=== PATIENT | female | born 1945 | race Caucasian/White ===

== ENCOUNTER 2017-08-23 16:31 | Emergency (ER) | payer MEDICARE, MEDICAID ==
[2017-08-23 17:04] VITALS: BP 142/59
--- NOTE | 2017-08-23 17:31 | EDM.PDOC ---
ED HPI GENERAL MEDICAL PROBLEM - General Chief Complaint: Genitourinary Problem Stated Complaint: UTI Time Seen by Provider: 08/23/17 17:05 Source of Information: Reports: Patient History Limitations: Reports: No Limitations - History of Present Illness INITIAL COMMENTS - FREE TEXT/NARRATIVE: Patient is a 71-year-old female who presents to the emergency department this afternoon with a complaint of burning with urination. She was seen at [facility] 9 days ago and given Macrobid. Symptoms have persisted and now become worse. Patient states only has dysuria and denies any abdominal pain, nausea, vomiting, diarrhea, fever, or flank pain. Onset: Gradual Onset Date: 08/14/17 Duration: Getting Worse Quality: Reports: Burning (With urination) Severity: Mild Improves with: Reports: None Worsens with: Reports: None Associated Symptoms: Reports: No Other Symptoms. Denies: Fever/Chills Bladder Pain Score (Numeric/FACES): 5 - Related Data Allergies Allergy/AdvReac Type Severity Reaction Status Date / Time cefuroxime axetil Allergy Rash Verified 08/23/17 16:53 [From Ceftin] codeine Allergy Itching Verified 08/23/17 16:53 moxifloxacin HCl Allergy Jaundice Verified 08/23/17 16:53 [From Avelox] Penicillins Allergy Rash Verified 08/23/17 16:53 Sulfa (Sulfonamide Allergy Rash Verified 08/23/17 16:53 Antibiotics) Home Meds: Home Meds Amitriptyline [Elavil] 25 mg PO BEDTIME PRN 10/20/15 [History] Esomeprazole Magnesium [Nexium] 40 mg PO DAILY 10/20/15 [History] Gabapentin 400 mg PO DAILY 10/20/15 [History] Mometasone Furoate [Nasonex [place]] 1 spray INH DAILY PRN 10/20/15 [History] Rosuvastatin [Crestor] 40 mg PO DAILY 10/20/15 [History] Acetaminophen/oxyCODONE [Percocet 325-5 MG] 1 tab PO Q4H PRN #24 tablet [Rx] Albuterol Sulfate [Proair Respiclick] 2 puff INH Q4H PRN 08/23/17 [History] Albuterol/Ipratropium [DuoNeb 3.0-0.5 MG/3 ML] 1 ampule INH Q6H PRN 08/23/17 [ History] Aspirin 81 mg PO DAILY 08/23/17 [History] Cephalexin [Keflex] 500 mg PO TID #21 capsule 08/23/17 [Rx] Gabapentin [Neurontin] 100 mg PO QAM 08/23/17 [History] Gluc 2KCl/Chondr/Jesse Hy/Hy Ac [Glucosamine & Chondroitin Cap] 1 cap PO DAILY [History] [place]-3/DHA/Epa/Fish Oil [[place] 3 500 Softgel] 1 tab PO BID 08/23/17 [History] Phenazopyridine [Pyridium] 200 mg PO TID #6 tab 08/23/17 [Rx] metFORMIN [Glucophage XR] 500 mg PO DAILY 08/23/17 [History] Past Medical History HEENT History: Reports: None Cardiovascular History: Reports: High Cholesterol, Hypertension Respiratory History: Reports: COPD Gastrointestinal History: Reports: Cholelithiasis, Colon Polyp, GERD, Hiatal Hernia Genitourinary History: Reports: UTI, Recurrent [employer] History: Reports: Musculoskeletal History: Reports: Back Pain, Chronic, Fibromyalgia Neurological History: Reports: None Endocrine/Metabolic History: Reports: None Hematologic History: Reports: None Immunologic History: Reports: None - Past Surgical History Cardiovascular Surgical History: Reports: None Respiratory Surgical History: Reports: None GI Surgical History: Reports: Appendectomy, Cholecystectomy, Colonoscopy, EGD Female Surgical History: Reports: Breast Biopsy, Section, Hysterectomy Endocrine Surgical History: Reports: None Neurological Surgical History: Reports: Laminectomy Musculoskeletal Surgical History: Reports: Arthroscopic Knee, Arthroscopic Procedure, Carpal Tunnel, Shoulder Surgery Other Musculoskeletal Surgeries/Procedures:: hallie rotater cuff. right knee scope Oncologic Surgical History: Reports: Lumpectomy Social & Family History - Tobacco Use Smoking Status *Q: Current Every Day Smoker Years of Tobacco use: 45 Packs/Tins Daily: 1.5 - Caffeine Use Caffeine Use: Reports: Coffee - Recreational Drug Use Recreational Drug Use: No ED ROS GENERAL - Review of Systems Review Of Systems: ROS reveals no pertinent complaints other than HPI. Constitutional: Reports: No Symptoms HEENT: Reports: No Symptoms Respiratory: Reports: No Symptoms Cardiovascular: Reports: No Symptoms Endocrine: Reports: No Symptoms GI/Abdominal: Reports: No Symptoms : Reports: Dysuria, Frequency, Hematuria, Urgency. Denies: Discharge, Flank Pain Musculoskeletal: Reports: No Symptoms Skin: Reports: No Symptoms Neurological: Reports: No Symptoms Psychiatric: Reports: No Symptoms Hematologic/Lymphatic: Reports: No Symptoms Immunologic: Reports: No Symptoms ED EXAM, RENAL/ - Physical Exam Exam: See Below Exam Limited By: No Limitations General Appearance: Alert, WD/WN, No Apparent Distress Throat/Mouth: Normal Inspection, Normal Oropharynx, No Airway Compromise Respiratory/Chest: No Respiratory Distress, Lungs Clear, Normal Breath Sounds Cardiovascular: Regular Rate, Rhythm, No Murmur GI/Abdominal: Normal Bowel Sounds, Soft, Non-Tender Back Exam: Normal Inspection. No: CVA Tenderness (L), CVA Tenderness (R) Extremities: Normal Inspection, No Pedal Edema Neurological: Alert, Oriented, Normal Cognition Psychiatric: Normal Affect, Normal Mood Skin Exam: Warm, Dry, Intact, Normal Color, No Rash Lymphatic: No Adenopathy Course - Vital Signs Last Recorded V/S: Last Vital Signs Temp 98.1 F 08/23/17 17:01 Pulse 83 08/23/17 17:01 Resp 18 08/23/17 17:01 BP 142/59 H 08/23/17 17:01 Pulse Ox 95 08/23/17 17:01 - Orders/Labs/Meds Orders: Active Orders 24 hr Category Date Time Status CULTURE URINE [RM] Stat Lab 08/23/17 17:06 Ordered URINALYSIS W/MICROSCOPIC [UA W/MICROSCOPIC] [URIN] Stat Lab 08/23/17 16:45 Ordered cefTRIAXone [Rocephin] Med 08/23/17 17:26 Once 1 gm IM ONETIME ONE Labs: Laboratory Tests 08/23/17 Range/Units 16:45 Specimen Type Urincc Urine Color Light yellow (YELLOW) Urine Appearance Slightly cloudy H (CLEAR) Urine pH 7.0 (5.0-9.0) Ur Specific [place] <= 1.005 (1.005-1.030) Urine Protein Negative (NEGATIVE) mg/dL Urine Glucose (UA) Negative (NEGATIVE) mg/dL Urine Ketones Negative (NEGATIVE) mg/dL Urine Occult Blood Large H (NEGATIVE) Urine Nitrite Negative (NEGATIVE) Urine Bilirubin Negative (NEGATIVE) Urine Urobilinogen 0.2 (0.2-1.0) E.U./dL Ur Leukocyte Esterase Large H (NEGATIVE) Urine RBC 0-5 /HPF Urine WBC 30-40 H /HPF Ur Epithelial Cells Few /LPF Urine Bacteria Few (NONE TO FEW) /HPF - Re-Assessments/Exams Free Text/Narrative Re-Assessment/Exam: 08/23/17 17:39 Patient afebrile, nontoxic appearing, vital signs stable. Patient given Rocephin 1 g IM, and 200 mg Pyridium. Patient will follow-up with PCP in 3 days for recheck. Departure - Departure Time of Disposition: 18:15 Disposition: Home, Self-Care 01 Condition: Good Clinical Impression: UTI, Urinary tract infectious disease - Discharge Information Instructions: Urinary Tract Infection, Adult, [id number] Referrals: Catina Carrasco PA-C [Primary Care Provider] - Additional Instructions: Follow-up at [facility] in 3 days for recheck. Return to emergency department sooner if symptoms continue or worsen. - My Orders Last 24 Hours: My Active Orders 08/23/17 16:45 URINALYSIS W/MICROSCOPIC [UA W/MICROSCOPIC] [URIN] Stat 08/23/17 17:06 CULTURE URINE [RM] Stat 08/23/17 17:26 cefTRIAXone [Rocephin] 1 gm IM ONETIME ONE - Assessment/Plan Last 24 Hours: My Active Orders 08/23/17 16:45 URINALYSIS W/MICROSCOPIC [UA W/MICROSCOPIC] [URIN] Stat 08/23/17 17:06 CULTURE URINE [RM] Stat 08/23/17 17:26 cefTRIAXone [Rocephin] 1 gm IM ONETIME ONE Assessment:: Urinary tract infection Plan: Follow-up with PCP in 3 days.
[2017-08-23] MEDS: Phenazopyridine 100 MG Tab PO ONE (17:58)
[2017-08-23] MEDS: cefTRIAXone 1 GM Vial IM ONE (17:59)
== END 2017-08-23 18:30 | disposition home or self-care (01) ==
LOC: KA.ED 16:31
DX: N39.0 Urinary tract infection, site not specified (principal); E78.00 Pure hypercholesterolemia, unspecified; I10 Essential (primary) hypertension; J44.9 Chronic obstructive pulmonary disease, unspecified; F17.210 Nicotine dependence, cigarettes, uncomplicated; Z88.1 Allergy status to other antibiotic agents; Z88.0 Allergy status to penicillin; Z79.899 Other long term (current) drug therapy; Z87.440 Personal history of urinary (tract) infections; Z98.890 Other specified postprocedural states; Z88.2 Allergy status to sulfonamides; Z88.8 Allergy status to other drugs, medicaments and biological substances
CPT/HCPCS: 81001; 87086; 96372; 99283; 99284; A9270-GY; J0696

== ENCOUNTER 2020-12-27 19:05 | Observation (INO) | payer MEDICARE, MEDICAID ==
[2020-12-27] MEDS ORDERED: Sodium Chloride 0.9% 10 ML Syringe FLUSH PRN (19:47)
[2020-12-27] MEDS ORDERED: Ondansetron 4 MG/2 ML SDV IVPUSH ONE (19:47)
[2020-12-27] MEDS ORDERED: Morphine 4 MG/ML Syringe IVPUSH ONE (19:47)
[2020-12-27] MEDS ORDERED: Albuterol/Ipratropium 3.0-0.5 MG/3 ML Neb Soln NEB ONE (19:48)
--- NOTE | 2020-12-27 19:49 | CR ---
[id number] RAD/RAD Chest PA And Lateral EXAM: RAD Chest PA And Lateral CLINICAL DATA: CHEST PAIN COMPARISON: CORRELATION IS MADE WITH DECEMBER 07, 2009 FINDINGS: The lungs are clear. The cardiomediastinal contour is prominent but stable. The regional bones and soft tissues are unremarkable. IMPRESSION: NO ACUTE PROCESS. Rubens Brown MD 12/27/20 1760 Thank you for allowing us to participate in the care of your patient.
[2020-12-27] MEDS ORDERED: Morphine 2 MG/ML SYRINGE IVPUSH ONE (19:56)
--- NOTE | 2020-12-27 19:56 | EDM.PDOC ---
ED HPI GENERAL MEDICAL PROBLEM - General Chief Complaint: Chest Pain Stated Complaint: CHEST PAIN, SHORTNESS OF BREATH Time Seen by Provider: 12/27/20 19:49 Source of Information: Reports: Patient History Limitations: Reports: No Limitations - History of Present Illness INITIAL COMMENTS - FREE TEXT/NARRATIVE: 75 YO WF PRESENTS TO ER COMPLAINING OF LEFT SIDED PLEURITIC CHEST PAIN WHICH BEGAN YESTERDAY AFTER COUGHING. PT REPORTS PAIN BEGAN MILD PLEURITIC PAIN AND HAS PROGRESSED IN INTENSITY TODAY. PT WITH ASSOCIATED MILD SHORTNESS OF BREATH. PT DENIES FEVER/CHILLS, NO NAUSEA/VOMITING, NO DIAPHORESIS. PT REPORTS TOBACCO USE 1PPD. PT DENIES ANY RECENT UPPER RESPIRATORY TRACT INFECTIONS. PT DENIES ANY CARDIAC HISTORY. PT DENIES ANY COVID KNOWN EXPOSURES. PT HAS BEEN FULLY IMMUNIZED SINCE 07/2020. Onset Date: 12/26/20 Duration: Day(s): (2) Location: Reports: Chest Quality: Reports: Sharp Severity: Moderate Improves with: Reports: Rest Worsens with: Reports: Breathing, Movement Associated Symptoms: Reports: Chest Pain, Cough, Shortness of Breath. Denies: Fever/Chills, Nausea/Vomiting, Syncope, Weakness Left Chest Pain Score (Numeric/FACES): 10 - Related Data Allergies Allergy/AdvReac Type Severity Reaction Status Date / Time cefuroxime axetil Allergy Rash Verified 12/27/20 19:32 [From Ceftin] codeine Allergy Itching Verified 12/27/20 19:32 moxifloxacin HCl Allergy Jaundice Verified 12/27/20 19:32 [From Avelox] Penicillins Allergy Rash Verified 12/27/20 19:32 Sulfa (Sulfonamide Allergy Rash Verified 12/27/20 19:32 Antibiotics) Home Meds: Home Meds Amitriptyline [Elavil] 100 mg PO BEDTIME 10/20/15 [History] Esomeprazole Magnesium [Nexium] 40 mg PO DAILY 10/20/15 [History] Gabapentin 400 mg PO BEDTIME 10/20/15 [History] Mometasone Furoate [Nasonex [place]] 1 spray INH DAILY PRN 10/20/15 [History] Rosuvastatin [Crestor] 40 mg PO BEDTIME 10/20/15 [History] Albuterol Sulfate [Proair Respiclick] 2 puff INH Q4H PRN 08/23/17 [History] Albuterol/Ipratropium [DuoNeb 3.0-0.5 MG/3 ML] 1 ampule INH Q6H PRN 08/23/17 [History] Aspirin 81 mg PO DAILY 08/23/17 [History] Glucosam/Chondr/Collagn/Hyalur [Glucosamine & Chondroitin Cap] 1 cap PO DAILY 08/23/17 [History] metFORMIN [Glucophage XR] 500 mg PO DAILY 08/23/17 [History] Past Medical History HEENT History: Reports: None Cardiovascular History: Reports: High Cholesterol, Hypertension Respiratory History: Reports: COPD Gastrointestinal History: Reports: Cholelithiasis, Colon Polyp, GERD, Hiatal Hernia Genitourinary History: Reports: UTI, Recurrent [employer]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: Musculoskeletal History: Reports: Back Pain, Chronic, Fibromyalgia Neurological History: Reports: None Endocrine/Metabolic History: Reports: None Hematologic History: Reports: None Immunologic History: Reports: None - Past Surgical History Cardiovascular Surgical History: Reports: None Respiratory Surgical History: Reports: None GI Surgical History: Reports: Appendectomy, Cholecystectomy, Colonoscopy, EGD Female Surgical History: Reports: Breast Biopsy, Section, Hy sterectomy Endocrine Surgical History: Reports: None Neurological Surgical History: Reports: Laminectomy Musculoskeletal Surgical History: Reports: Arthroscopic Knee, Arthroscopic Procedure, Carpal Tunnel, Shoulder Surgery Other Musculoskeletal Surgeries/Procedures:: hallie rotater cuff. right knee scope Oncologic Surgical History: Reports: Lumpectomy Social & Family History - Tobacco Use Tobacco Use Status *Q: Current Every Day Tobacco User Years of Tobacco use: 40 Packs/Tins Daily: 1 - Caffeine Use Caffeine Use: Reports: Coffee Other Caffeine Use: 8 cups of coffee a day - Recreational Drug Use Recreational Drug Use: No ED ROS GENERAL - Review of Systems Review Of Systems: See Below Constitutional: Reports: No Symptoms HEENT: Reports: No Symptoms Respiratory: Reports: Shortness of Breath, Pleuritic Chest Pain, Cough Cardiovascular: Reports: Chest Pain Endocrine: Reports: No Symptoms GI/Abdominal: Reports: No Symptoms : Reports: No Symptoms Musculoskeletal: Reports: No Symptoms Skin: Reports: No Symptoms Neurological: Reports: No Symptoms Psychiatric: Reports: No Symptoms Hematologic/Lymphatic: Reports: No Symptoms ED EXAM, GENERAL - Physical Exam Exam: See Below Exam Limited By: No Limitations General Appearance: Alert, WD/WN, No Apparent Distress Head: Atraumatic, Normocephalic Neck: Normal Inspection, Supple, Non-Tender, Full Range of Motion Respiratory/Chest: No Respiratory Distress, No Accessory Muscle Use, Chest Non- Tender, Wheezing Cardiovascular: Normal Peripheral Pulses, Regular Rate, Rhythm, No Edema, No Gallop, No JVD, No Murmur, No Rub GI/Abdominal: Normal Bowel Sounds, Soft, Non-Tender, No Organomegaly, No Di stention, No Abnormal Bruit, No Mass Back Exam: Normal Inspection, Full Range of Motion, NT Extremities: Normal Inspection, Normal Range of Motion, Non-Tender, Normal Capillary Refill, No Pedal Edema Neurological: Alert, Oriented, CN II-XII Intact, Normal Cognition, Normal Gait, No Motor/Sensory Deficits Psychiatric: Normal Affect, Normal Mood #1 Interpretation EKG Date: 12/27/20 Time: 19:16 Rhythm: NSR Rate (Beats/Min): 99 Agency: Normal P-Wave: Present QRS: Normal ST-T: Normal QT: Normal Course - Vital Signs Last Recorded V/S: Last Vital Signs Temp 97.6 F 12/27/20 19:10 Pulse 91 12/27/20 20:15 Resp 18 12/27/20 20:15 BP 137/71 12/27/20 20:15 Pulse Ox 95 12/27/20 20:15 - Orders/Labs/Meds Orders: Active Orders 24 hr Category Date Time Status Peripheral IV Care [RC] . DIRECTED Care 12/27/20 19:47 Active RT Aerosol Therapy [RC] ASDIRECTED Care 12/27/20 19:48 Active Sodium Chloride 0.9% [Saline Flush] Med 12/27/20 19:47 Active 10 ml FLUSH Q8HR PRN Peripheral IV Insertion Adult [OM.PC] Routine Oth 12/27/20 19:47 Ordered EKG 12 Lead [EK] Stat Ther 12/27/20 19:00 Ordered Medication Orders Sodium Chloride (Sodium Chloride 0.9% 10 Ml Syringe) 10 ml FLUSH Q8HR PRN PRN Reason: keep vein open Last Admin: 12/27/20 20:31 Dose: 10 ml Documented by: BENIGNO Labs: Laboratory Tests 12/27/20 12/27/20 12/27/20 Range/Units 19:20 19:20 20:00 WBC 12.30 H (5.00-10.00) 10^3/uL RBC 4.51 (3.80-5.50) 10^6/uL Hgb 14.5 (12.0-16.0) g/dL Hct 42.4 (37.0-47.0) % MCV 94.0 H D (82.0-92.0) fL MCH 32.2 H (27.0-31.0) pg MCHC 34.2 (32.0-36.0) g/dL RDW 12.8 (11.5-14.5) % Plt Count 169 (150-400) 10^3/uL MPV 9.9 (7.4-10.4) fL Immature Gran % (Auto) 0.2 (0.0-5.0) % Neut % (Auto) 78.4 H (50.0-70.0) % Lymph % (Auto) 12.3 L (20.0-40.0) % [place] % (Auto) 7.9 (2.0-8.0) % Eos % (Auto) 1.0 (1.0-3.0) % Baso % (Auto) 0.2 (0.0-1.0) % Neut # (Auto) 9.65 H (2.50-7.00) 10^3/uL Lymph # (Auto) 1.51 (1.00-4.00) 10^3/uL [place] # (Auto) 0.97 H (0.10-0.80) 10^3/uL Eos # (Auto) 0.12 (0.10-0.30) 10^3/uL Baso # (Auto) 0.03 (0.00-0.10) 10^3/uL Immature Gran # (Auto) 0.02 (0.00-0.50) 10^3/uL D-Dimer, Quantitative (<400) ng/mL Sodium 137 (136-145) mmol/L Potassium 3.9 (3.5-5.1) mmol/L Chloride 99 (98-107) mmol/L Carbon Dioxide 26.2 (21.0-32.0) mmol/L Anion Gap 15.7 H (5-15) mmol/L BUN 9 (7-18) mg/dL Creatinine 0.84 (0.51-1.17) mg/dL Est Cr Clr Drug Dosing 45.01 mL/min Estimated GFR (MDRD) > 60 mL/min Glucose 163 H (70-140) mg/dL Lactic Acid 1.7 (0.4-2.0) mmol/L Calcium 9.1 (8.7-10.3) mg/dL Total Bilirubin 0.6 (0.2-1.0) mg/dL AST 38 H (15-37) U/L ALT 41 (14-63) U/L Alkaline Phosphatase 82 (46-116) U/L Creatine Kinase 72 (26-276) U/L CK-MB (CK-2) 0.88 (0.00-3.60) ng/mL Troponin I High Sens 6.100 (0-51.000) pg/mL B-Natriuretic Peptide 8 (0-100) pg/mL Total Protein 7.5 (6.4-8.2) g/dL Albumin 3.95 (3.40-5.00) g/dL SARS CoV-2 RNA Rapid BRYSON (NEGATIVE) 12/27/20 12/27/20 Range/Units 20:00 20:15 WBC (5.00-10.00) 10^3/uL RBC (3.80-5.50) 10^6/uL Hgb (12.0-16.0) g/dL Hct (37.0-47.0) % MCV (82.0-92.0) fL MCH (27.0-31.0) pg MCHC (32.0-36.0) g/dL RDW (11.5-14.5) % Plt Count (150-400) 10^3/uL MPV (7.4-10.4) fL Immature Gran % (Auto) (0.0-5.0) % Neut % (Auto) (50.0-70.0) % Lymph % (Auto) (20.0-40.0) % [place] % (Auto) (2.0-8.0) % Eos % (Auto) (1.0-3.0) % Baso % (Auto) (0.0-1.0) % Neut # (Auto) (2.50-7.00) 10^3/uL Lymph # (Auto) (1.00-4.00) 10^3/uL [place] # (Auto) (0.10-0.80) 10^3/uL Eos # (Auto) (0.10-0.30) 10^3/uL Baso # (Auto) (0.00-0.10) 10^3/uL Immature Gran # (Auto) (0.00-0.50) 10^3/uL D-Dimer, Quantitative 207 (<400) ng/mL Sodium (136-145) mmol/L Potassium (3.5-5.1) mmol/L Chloride (98-107) mmol/L Carbon Dioxide (21.0-32.0) mmol/L Anion Gap (5-15) mmol/L BUN (7-18) mg/dL Creatinine (0.51-1.17) mg/dL Est Cr Clr Drug Dosing mL/min Estimated GFR (MDRD) mL/min Glucose (70-140) mg/dL Lactic Acid (0.4-2.0) mmol/L Calcium (8.7-10.3) mg/dL Total Bilirubin (0.2-1.0) mg/dL AST (15-37) U/L ALT (14-63) U/L Alkaline Phosphatase (46-116) U/L Creatine Kinase (26-276) U/L CK-MB (CK-2) (0.00-3.60) ng/mL Troponin I High Sens (0-51.000) pg/mL B-Natriuretic Peptide (0-100) pg/mL Total Protein (6.4-8.2) g/dL Albumin (3.40-5.00) g/dL SARS CoV-2 RNA Rapid BRYS[place] Negative (NEGATIVE) Meds: Medications Generic Name Dose Route Start Last Admin Trade Name Freq PRN Reason Stop Dose Admin Sodium Chloride 10 ml 12/27/20 19:47 12/27/20 20:31 Sodium Chloride 0.9% 10 Ml Syringe FLUSH 10 ml Q8HR PRN Administration keep vein open Discontinued Medications Generic Name Dose Route Start Last Admin Trade Name Freq PRN Reason Stop Dose Admin Albuterol/Ipratropium 3 ml 12/27/20 19:48 12/27/20 20:13 Albuterol/Ipratropium 3.0-0.5 Mg/3 Ml Neb Soln NEB 12/27/20 19:49 3 ml ONETIME ONE Administration Ketorolac Tromethamine 30 mg 12/27/20 20:26 12/27/20 20:30 Ketorolac 30 Mg/Ml Sdv IVPUSH 12/27/20 20:27 30 mg ONETIME ONE Administration Morphine Sulfate 4 mg 12/27/20 19:47 12/27/20 20:31 Morphine 4 Mg/Ml Syringe IVPUSH 12/27/20 19:48 Not Given ONETIME ONE Morphine Sulfate 4 mg 12/27/20 19:56 12/27/20 20:01 Morphine 2 Mg/Ml Syringe IVPUSH 12/27/20 19:57 4 mg ONETIME ONE Administration Ondansetron HCl 4 mg 12/27/20 19:47 12/27/20 19:57 Ondansetron 4 Mg/2 Ml Sdv IVPUSH 12/27/20 19:48 4 mg ONETIME ONE Administration - Radiology Interpretation Free Text/Narrative:: CXR-NAD Departure - Departure Time of Disposition: 20:51 Disposition: Refer to Observation Condition: Fair Clinical Impression: Atypical chest pain - Discharge Information Referrals: Vera Gregorio MD [Primary Care Provider] - Forms: ED Department Discharge Sepsis Event Note (ED) - Evaluation Sepsis Screening Result: No Definite Risk - Focused Exam Vital Signs: Vital Signs Temp Pulse Resp BP Pulse Ox 12/27/20 20:15 91 18 137/71 95 12/27/20 19:40 98 22 H 146/113 H 97 12/27/20 19:25 97 24 H 152/74 H 96 12/27/20 19:10 97.6 F 106 H 22 H 143/71 H 95 - My Orders Last 24 Hours: My Active Orders 12/27/20 19:00 EKG 12 Lead [EK] Stat 12/27/20 19:47 Peripheral IV Care [RC] . DIRECTED Sodium Chloride 0.9% [Saline Flush] 10 ml FLUSH Q8HR PRN Peripheral IV Insertion Adult [OM.PC] Routine 12/27/20 19:48 RT Aerosol Therapy [RC] ASDIRECTED - Assessment/Plan Last 24 Hours: My Active Orders 12/27/20 19:00 EKG 12 Lead [EK] Stat 12/27/20 19:47 Peripheral IV Care [RC] . DIRECTED Sodium Chloride 0.9% [Saline Flush] 10 ml FLUSH Q8HR PRN Peripheral IV Insertion Adult [OM.PC] Routine 12/27/20 19:48 RT Aerosol Therapy [RC] ASDIRECTED Assessment:: 1. ATYPICAL CHEST PAIN Plan: 1. ADMIT TO MEDICINE- DR REYNA-OBSERVATION 2. SOLUMEDROL 80MG IV Q8 3. DUONEB Q4 AND PRN 4. DILAUDID 1MG IV Q4 PRN PAIN 5. SUPPORTIVE CARE 6. REPEAT TROP I Q6 X 3
[2020-12-27 20:05] LABS: ANION GAP 15.7 mmol/L (5-15); CHLORIDE,CL 99 mmol/L (98-107); SODIUM,NA 137 mmol/L (136-145)
[2020-12-27] MEDS ORDERED: Ketorolac 30 MG/ML SDV IVPUSH ONE (20:26)
[2020-12-27] MEDS ORDERED: Albuterol/Ipratropium 3.0-0.5 MG/3 ML Neb Soln NEB PRN (20:53)
[2020-12-27] MEDS ORDERED: Ondansetron 4 MG/2 ML SDV IV PRN (20:53)
[2020-12-27] MEDS ORDERED: HYDROmorphone 1 MG/ML Syringe IVPUSH PRN (20:56)
[2020-12-27] MEDS ORDERED: Non-Formulary Medication 1 Each (Albuterol Sulfate [Proair Respiclick] 90 MCG Aer.Pow.Ba) INH PRN (20:57)
[2020-12-27] MEDS ORDERED: Amitriptyline 25 MG Tab PO SCH (21:00)
[2020-12-27] MEDS ORDERED: Non-Formulary Medication 1 Each (Rosuvastatin [Crestor] 40 MG Tablet) PO SCH (21:00)
[2020-12-27] MEDS ORDERED: GABAPENTIN 400 MG PO SCH ×2 (21:00→23:15)
[2020-12-27] MEDS: methylPREDNISolone Sodium Succinate 125 MG/2 ML SDV IVPUSH SCH (22:15)
[2020-12-27] MEDS ORDERED: Albuterol 8 GM Inhaler INH PRN (23:13)
[2020-12-27] MEDS ORDERED: AMITRIPTYLINE 100 MG PO SCH (23:15)
[2020-12-27] MEDS: TRIMETHOPRIM EYERT SCH (23:16)
[2020-12-27] MEDS: POLYMYXIN B EYERT SCH (23:16)
[2020-12-28] MEDS: methylPREDNISolone Sodium Succinate 125 MG/2 ML SDV IVPUSH SCH (05:55)
[2020-12-28 06:08] VITALS: BP 113/58; PULSE 73
[2020-12-28] MEDS ORDERED: ESOMEPRAZOLE 40 MG PO SCH (08:00)
[2020-12-28] MEDS ORDERED: Aspirin 81 MG Tab.Chew PO SCH (09:00)
[2020-12-28] MEDS ORDERED: metFORMIN 500 MG Tab.ER PO SCH ×2 (09:00→21:00)
--- NOTE | 2020-12-28 09:21 | PCM.DCSUM1 ---
Discharge Summary - Hospital Course Free Text/Narrative:: Admission Date: 12/27/2020 Discharge Date: 12/28/2020 Disposition: Home, Self Care Admission Diagnosis: Atypical chest pain Discharge Diagnosis: Pleuritic chest pain, improving - Prednisone 40 mg PO daily x 5 days (sent through clinic chart to [facility]) - Hydrocodone/APAP 5/325 mg tabs, 1 tab PO q 4 hour PRN pleuritic chest pain, #20 (sent through clinic chart) Secondary Diagnoses: Borderline Diabetes - Metformin XR 500 mg PO daily - ASA 81 mg PO daily Hyperlipidemia - Rosuvastatin 40 mg PO daily Fibromyalgia - Gabapentin 400 mg PO daily Hx of back pain and back surgery - Amitriptyline 100 mg PO daily Acid Reflux - Esomeprazole 40 mg PO daily New Medications at Discharge - Prednisone 40 mg PO daily x 5 days - Hydrocodone/APAP 5/325 mg tabs 1 tab PO q 4 hours PRN pleuritic chest pain, #20 CODE STATUS: Full Code Hospital Course: Renay was admitted 12/27 through the ER with left sided chest pain. It started after she had been coughing. She had a similar type of chest pain in the past when she had pneumonia and was coughing frequently. In the ER CXR was negative, EKG was NSR, high sensitivity troponin was 6.1, d-dimer negative at 207. WBC up slightly at 12.3 with 78% neutrophils. Lactate 1.7, BNP 8, COVID testing was negative and she is also fully vaccinated for COVID as of July 2020. She was given a duoneb, morphine 4 mg x 1 and toradol 30 mg IV x 1. She was admitted to observation on telemetry. She was started on solumedrol 80 mg IV q 8 hour and also had dilaudid 1 mg q 4 hours PRN although never did request the dilaudid. She had an episode of chest pain at 0300 but did not want anything for it. Two subsequent troponins have been negative at 7.1 and 6.2. She states she slept poorly. She states "I can go home and sit here just as well as I can sit here except at home I can rest". No events on telemetry overnight. She will be discharged to home with hydrocodone/APAP for pain control as well as prednisone 40 mg PO daily x 5 days. She can follow-up with her PCP in 7-10 days. Diagnosis: Stroke: No Modified Addison Scale: No Signif.Disability Despite Sympt.Able to Carry Out Usual Act./Duties Modified Addison Scale Score: 1 - Discharge Data Discharge Date: 12/28/20 Discharge Disposition: Home, Self-Care 01 Condition: Good - Referral to Home Health Primary Care Physician: Vera Gregorio MD - Patient Instructions Diet: Usual Diet as Tolerated Activity: Rest and Relax Today - Discharge Plan *PRESCRIPTION DRUG MONITORING PROGRAM REVIEWED*: No *COPY OF PRESCRIPTION DRUG MONITORING REPORT IN PATIENT ALBERT: No Home Medications: Home Meds Amitriptyline [Elavil] 100 mg PO BEDTIME 10/20/15 [History] Esomeprazole Magnesium [Nexium] 40 mg PO DAILY 10/20/15 [History] Gabapentin 400 mg PO BEDTIME 10/20/15 [History] Mometasone Furoate [Nasonex [place]] 1 spray INH DAILY PRN 10/20/15 [History] Rosuvastatin [Crestor] 40 mg PO BEDTIME 10/20/15 [History] Albuterol Sulfate [Proair Respiclick] 2 puff INH Q4H PRN 08/23/17 [History] Albuterol/Ipratropium [DuoNeb 3.0-0.5 MG/3 ML] 1 ampule INH Q6H PRN 08/23/17 [History] Aspirin 81 mg PO DAILY 08/23/17 [History] Glucosam/Chondr/Collagn/Hyalur [Glucosamine & Chondroitin Cap] 1 cap PO DAILY 08/23/17 [History] metFORMIN [Glucophage XR] 500 mg PO DAILY 08/23/17 [History] Polymyxin B Sulf/Trimethoprim [Polymyxin B-Tmp Eye Drops] 1 drop EYERT QID 12/27/20 [History] Patient's Own Medication [Ptom] 0 each EYERT QID each 12/28/20 [Rx] Forms: ED Department Discharge Referrals: Vera Gregorio MD [Primary Care Provider] - - Discharge Summary/Plan Comment DC Time >30 min.: No Total # of Minutes for Discharge Time: 25 - General Info Date of Service: 12/28/20 Admission Dx/Problem (Free Text: Pleuritic chest pain. - Patient Data Vitals - Most Recent: Last Vital Signs Temp 96.4 F L 12/28/20 06:07 Pulse 73 12/28/20 06:07 Resp 16 12/28/20 06:07 BP 113/58 L 12/28/20 06:07 Pulse Ox 96 12/28/20 06:07 Weight - Most Recent: 157 lb 6.4 oz I&O - Last 24 hours: Intake & Output 12/27/20 12/28/20 12/28/20 22:59 06:59 14:59 Intake Total 0 50 Output Total 0 Balance 0 50 Lab Results - Last 24 hrs: Laboratory Results - last 24 hr 12/27/20 12/27/20 12/27/20 Range/Units 19:20 19:20 20:00 WBC 12.30 H (5.00-10.00) 10^3/uL RBC 4.51 (3.80-5.50) 10^6/uL Hgb 14.5 (12.0-16.0) g/dL Hct 42.4 (37.0-47.0) % MCV 94.0 H D (82.0-92.0) fL MCH 32.2 H (27.0-31.0) pg MCHC 34.2 (32.0-36.0) g/dL RDW 12.8 (11.5-14.5) % Plt Count 169 (150-400) 10^3/uL MPV 9.9 (7.4-10.4) fL Immature Gran % (Auto) 0.2 (0.0-5.0) % Neut % (Auto) 78.4 H (50.0-70.0) % Lymph % (Auto) 12.3 L (20.0-40.0) % [place] % (Auto) 7.9 (2.0-8.0) % Eos % (Auto) 1.0 (1.0-3.0) % Baso % (Auto) 0.2 (0.0-1.0) % Neut # (Auto) 9.65 H (2.50-7.00) 10^3/uL Lymph # (Auto) 1.51 (1.00-4.00) 10^3/uL [place] # (Auto) 0.97 H (0.10-0.80) 10^3/uL Eos # (Auto) 0.12 (0.10-0.30) 10^3/uL Baso # (Auto) 0.03 (0.00-0.10) 10^3/uL Immature Gran # (Auto) 0.02 (0.00-0.50) 10^3/uL D-Dimer, Quantitative (<400) ng/mL Sodium 137 (136-145) mmol/L Potassium 3.9 (3.5-5.1) mmol/L Chloride 99 (98-107) mmol/L Carbon Dioxide 26.2 (21.0-32.0) mmol/L Anion Gap 15.7 H (5-15) mmol/L BUN 9 (7-18) mg/dL Creatinine 0.84 (0.51-1.17) mg/dL Est Cr Clr Drug Dosing 45.01 mL/min Estimated GFR (MDRD) > 60 mL/min Glucose 163 H (70-140) mg/dL Lactic Acid 1.7 (0.4-2.0) mmol/L Calcium 9.1 (8.7-10.3) mg/dL Total Bilirubin 0.6 (0.2-1.0) mg/dL AST 38 H (15-37) U/L ALT 41 (14-63) U/L Alkaline Phosphatase 82 (46-116) U/L Creatine Kinase 72 (26-276) U/L CK-MB (CK-2) 0.88 (0.00-3.60) ng/mL Troponin I High Sens 6.100 (0-51.000) pg/mL B-Natriuretic Peptide 8 (0-100) pg/mL Total Protein 7.5 (6.4-8.2) g/dL Albumin 3.95 (3.40-5.00) g/dL SARS CoV-2 RNA Rapid BRYSON (NEGATIVE) 12/27/20 12/27/20 12/28/20 Range/Units 20:00 20:15 01:10 WBC (5.00-10.00) 10^3/uL RBC (3.80-5.50) 10^6/uL Hgb (12.0-16.0) g/dL Hct (37.0-47.0) % MCV (82.0-92.0) fL MCH (27.0-31.0) pg MCHC (32.0-36.0) g/dL RDW (11.5-14.5) % Plt Count (150-400) 10^3/uL MPV (7.4-10.4) fL Immature Gran % (Auto) (0.0-5.0) % Neut % (Auto) (50.0-70.0) % Lymph % (Auto) (20.0-40.0) % [place] % (Auto) (2.0-8.0) % Eos % (Auto) (1.0-3.0) % Baso % (Auto) (0.0-1.0) % Neut # (Auto) (2.50-7.00) 10^3/uL Lymph # (Auto) (1.00-4.00) 10^3/uL [place] # (Auto) (0.10-0.80) 10^3/uL Eos # (Auto) (0.10-0.30) 10^3/uL Baso # (Auto) (0.00-0.10) 10^3/uL Immature Gran # (Auto) (0.00-0.50) 10^3/uL D-Dimer, Quantitative 207 (<400) ng/mL Sodium (136-145) mmol/L Potassium (3.5-5.1) mmol/L Chloride (98-107) mmol/L Carbon Dioxide (21.0-32.0) mmol/L Anion Gap (5-15) mmol/L BUN (7-18) mg/dL Creatinine (0.51-1.17) mg/dL Est Cr Clr Drug Dosing mL/min Estimated GFR (MDRD) mL/min Glucose (70-140) mg/dL Lactic Acid (0.4-2.0) mmol/L Calcium (8.7-10.3) mg/dL Total Bilirubin (0.2-1.0) mg/dL AST (15-37) U/L ALT (14-63) U/L Alkaline Phosphatase (46-116) U/L Creatine Kinase (26-276) U/L CK-MB (CK-2) (0.00-3.60) ng/mL Troponin I High Sens 7.100 (0-51.000) pg/mL B-Natriuretic Peptide (0-100) pg/mL Total Protein (6.4-8.2) g/dL Albumin (3.40-5.00) g/dL SARS CoV-2 RNA Rapid [place]YS[place] Negative (NEGATIVE) 12/28/20 Range/Units 07:10 WBC (5.00-10.00) 10^3/uL RBC (3.80-5.50) 10^6/uL Hgb (12.0-16.0) g/dL Hct (37.0-47.0) % MCV (82.0-92.0) fL MCH (27.0-31.0) pg MCHC (32.0-36.0) g/dL RDW (11.5-14.5) % Plt Count (150-400) 10^3/uL MPV (7.4-10.4) fL Immature Gran % (Auto) (0.0-5.0) % Neut % (Auto) (50.0-70.0) % Lymph % (Auto) (20.0-40.0) % [place] % (Auto) (2.0-8.0) % Eos % (Auto) (1.0-3.0) % Baso % (Auto) (0.0-1.0) % Neut # (Auto) (2.50-7.00) 10^3/uL Lymph # (Auto) (1.00-4.00) 10^3/uL [place] # (Auto) (0.10-0.80) 10^3/uL Eos # (Auto) (0.10-0.30) 10^3/uL Baso # (Auto) (0.00-0.10) 10^3/uL Immature Gran # (Auto) (0.00-0.50) 10^3/uL D-Dimer, Quantitative (<400) ng/mL Sodium (136-145) mmol/L Potassium (3.5-5.1) mmol/L Chloride (98-107) mmol/L Carbon Dioxide (21.0-32.0) mmol/L Anion Gap (5-15) mmol/L BUN (7-18) mg/dL Creatinine (0.51-1.17) mg/dL Est Cr Clr Drug Dosing mL/min Estimated GFR (MDRD) mL/min Glucose (70-140) mg/dL Lactic Acid (0.4-2.0) mmol/L Calcium (8.7-10.3) mg/dL Total Bilirubin (0.2-1.0) mg/dL AST (15-37) U/L ALT (14-63) U/L Alkaline Phosphatase (46-116) U/L Creatine Kinase (26-276) U/L CK-MB (CK-2) (0.00-3.60) ng/mL Troponin I High Sens 6.200 (0-51.000) pg/mL B-Natriuretic Peptide (0-100) pg/mL Total Protein (6.4-8.2) g/dL Albumin (3.40-5.00) g/dL SARS CoV-2 RNA Rapid BRYS[place] (NEGATIVE) Med Orders - Current: Current Medications Albuterol (Albuterol 8 Gm Inhaler) 0 gm INH Q4H PRN PRN Reason: Dyspnea Albuterol/Ipratropium (Albuterol/Ipratropium 3.0-0.5 Mg/3 Ml Neb Soln) 3 ml NEB Q4H PRN PRN Reason: Shortness Of Breath/wheezing Aspirin (Aspirin 81 Mg Tab.Chew) 81 mg PO DAILY [facility] Hydromorphone HCl (Hydromorphone 1 Mg/Ml Syringe) 1 mg IVPUSH Q4H PRN PRN Reason: Pain Metformin HCl (Metformin 500 Mg Tab.Er) 500 mg PO DAILY@2100 [facility] Methylprednisolone Sodium Succinate (Methylprednisolone Sodium Succinate 125 Mg/2 Ml Sdv) 80 mg IVPUSH Q8H [facility] Last Admin: 12/28/20 05:55 Dose: 80 mg Documented by: Gabapentin 400 Mg (Cap *Own Med) 0 mg PO BEDTIME [facility] Last Admin: 12/27/20 23:16 Dose: 400 mg Documented by: Esomeprazole 40mg (Caps Own Med) 0 mg PO DAILY@0800 [facility] Ondansetron HCl (Ondansetron 4 Mg/2 Ml Sdv) 4 mg IV Q6H PRN PRN Reason: Nausea/Vomiting Polymixin B Sulf/Trimethoprim Eye Drops Own Med 0 each EYERT QID [facility] Last Admin: 12/27/20 23:16 Dose: 1 each Documented by: Amitriptyline 100mg (Tab Own Med) 0 each PO BEDTIME [facility] Last Admin: 12/27/20 23:16 Dose: 1 each Documented by: Rosuvastatin Calcium (Rosuvastatin 10 Mg Tab) 40 mg PO BEDTIME MARYANNE Discontinued Medications Albuterol/Ipratropium (Albuterol/Ipratropium 3.0-0.5 Mg/3 Ml Neb Soln) 3 ml NEB ONETIME ONE Stop: 12/27/20 19:49 Last Admin: 12/27/20 20:13 Dose: 3 ml Documented by: Amitriptyline HCl (Amitriptyline 25 Mg Tab) 100 mg PO BEDTIME [facility] Last Admin: 12/28/20 00:07 Dose: Not Given Documented by: Ketorolac Tromethamine (Ketorolac 30 Mg/Ml Sdv) 30 mg IVPUSH ONETIME ONE Stop: 12/27/20 20:27 Last Admin: 12/27/20 20:30 Dose: 30 mg Documented by: Metformin HCl (Metformin 500 Mg Tab.Er) 500 mg PO DAILY [facility] Morphine Sulfate (Morphine 4 Mg/Ml Syringe) 4 mg IVPUSH ONETIME ONE Stop: 12/27/20 19:48 Last Admin: 12/27/20 20:31 Dose: Not Given Documented by: Morphine Sulfate (Morphine 2 Mg/Ml Syringe) 4 mg IVPUSH ONETIME ONE Stop: 12/27/20 19:57 Last Admin: 12/27/20 20:01 Dose: 4 mg Documented by: Non-Formulary Medication (Albuterol Sulfate [Proair Respiclick]) 2 puff INH Q4H PRN PRN Reason: Dyspnea Non-Formulary Medication (Esomeprazole Magnesium [Nexium]) 40 mg PO DAILY [facility] Non-Formulary Medication (Gabapentin [Gabapentin]) 400 mg PO BEDTIME [facility] Last Admin: 12/28/20 00:07 Dose: Not Given Documented by: Non-Formulary Medication (Rosuvastatin [Crestor]) 40 mg PO BEDTIME [facility] Last Admin: 12/27/20 22:00 Dose: Not Given Documented by: Ondansetron HCl (Ondansetron 4 Mg/2 Ml Sdv) 4 mg IVPUSH ONETIME ONE Stop: 12/27/20 19:48 Last Admin: 12/27/20 19:57 Dose: 4 mg Documented by: Sodium Chloride (Sodium Chloride 0.9% 10 Ml Syringe) 10 ml FLUSH Q8HR PRN PRN Reason: keep vein open Last Admin: 12/27/20 20:31 Dose: 10 ml Documented by: - Exam General: Reports: Alert, Oriented, Cooperative, No Acute Distress Lungs: Reports: Clear to Auscultation, Normal Respiratory Effort Cardiovascular: Reports: Regular Rate, Regular Rhythm, No Murmurs GI/Abdominal Exam: Normal Bowel Sounds, Non-Tender Extremities: No Pedal Edema
[2020-12-28] MEDS: POLYMYXIN B EYERT SCH (09:35)
[2020-12-28] MEDS: TRIMETHOPRIM EYERT SCH (09:35)
[2020-12-28] MEDS ORDERED: Rosuvastatin 10 MG Tab PO SCH (21:00)
== END 2020-12-28 10:18 | disposition home or self-care (01) ==
LOC: KA.ED 19:05 → KA.MS 20:52 → UNDOADMOB 20:52
PROVIDERS: ADMIT Physician Assistant Medical; ATTEND Internal Medicine
DX: R07.89 Other chest pain (principal); R73.03 Prediabetes; E78.5 Hyperlipidemia, unspecified; M79.7 Fibromyalgia; K21.9 Gastro-esophageal reflux disease without esophagitis; J44.9 Chronic obstructive pulmonary disease, unspecified; F17.210 Nicotine dependence, cigarettes, uncomplicated; Z88.0 Allergy status to penicillin; Z88.8 Allergy status to other drugs, medicaments and biological substances; Z79.84 Long term (current) use of oral hypoglycemic drugs; Z79.899 Other long term (current) drug therapy; Z79.82 Long term (current) use of aspirin; Z20.822 Contact with and (suspected) exposure to COVID-19; R06.02 Shortness of breath
CPT/HCPCS: 36415; 71046; 80053; 82550; 82553; 83605; 83880; 84484; 85025; 85379; 93005; 94640; 96374; 96375; 96376; 99217; 99220; 99285-25; A9270-GY; G0378; J1885; J2270; J2405; J2930; J7620-GY; U0002

== ENCOUNTER 2022-04-23 12:46 | Emergency (ER) | payer MEDICARE, MEDICAID ==
[2022-04-23 12:57] VITALS: BP 117/50; PULSE 83
[2022-04-23 13:37] LABS: ANION GAP 14.8 mmol/L (5-15)
[2022-04-23] MEDS: Lidocaine 1% 5 ML VIAL ONE (14:36)
[2022-04-23] MEDS: cefTRIAXone 1 GM Vial IM ONE (14:41)
== END 2022-04-23 14:45 | disposition home or self-care (01) ==
LOC: KA.ED 12:46
DX: N30.01 Acute cystitis with hematuria (principal); E78.00 Pure hypercholesterolemia, unspecified; J44.9 Chronic obstructive pulmonary disease, unspecified; K21.9 Gastro-esophageal reflux disease without esophagitis; Z87.891 Personal history of nicotine dependence; Z88.1 Allergy status to other antibiotic agents; Z88.8 Allergy status to other drugs, medicaments and biological substances; Z88.0 Allergy status to penicillin; Z88.2 Allergy status to sulfonamides; Z79.82 Long term (current) use of aspirin; Z79.899 Other long term (current) drug therapy
CPT/HCPCS: 36415; 80048; 81001; 83605; 85025; 87086; 87088; 96372; 99283; 99284; J0696

== ENCOUNTER 2023-04-20 14:01 | Emergency (ER) | payer MEDICARE, MEDICAID ==
[2023-04-20 14:05] VITALS: PULSE 96
[2023-04-20] MEDS ORDERED: Diphtheria,Pertussis(Acell),Tetanus Vaccine 0.5 ML Syringe IM ONE (14:12)
[2023-04-20 14:24] LABS: BASOPHILS ABSOLUTE AUTO 0.02 10^3/uL (0.00-0.10); BASOPHILS PERCENT AUTO 0.2 % (0.0-1.0); EOSINOPHILS ABSOLUTE AUTO 0.17 10^3/uL (0.10-0.30); HEMOGLOBIN 12.9 g/dL (12.0-16.0); IMMATURE GRAN ABSOLUTE AUTO 0.01 10^3/uL (0.00-0.50); IMMATURE GRAN PERCENT AUTO 0.1 % (0.0-5.0); LYMPHOCYTES ABSOLUTE AUTO 0.78 10^3/uL (1.00-4.00); LYMPHOCYTES PERCENT AUTO 9.3 % (20.0-40.0); MEAN CORPUSCULAR HEMOGLOBIN 30.7 pg (27.0-31.0); MEAN CORPUSCULAR HGB CONC 33.1 g/dL (32.0-36.0); MEAN CORPUSCULAR VOLUME 92.9 fL (82.0-92.0); MEAN PLATELET VOLUME 8.8 fL (7.4-10.4); MONOCYTES ABSOLUTE AUTO 0.57 10^3/uL (0.10-0.80); MONOCYTES PERCENT AUTO 6.8 % (2.0-8.0); NEUTROPHILS ABSOLUTE AUTO 6.87 10^3/uL (2.50-7.00); NEUTROPHILS PERCENT AUTO 81.6 % (50.0-70.0); PLATELET COUNT,PLT 170 10^3/uL (150-400); WHITE BLOOD CELL COUNT,WBC 8.42 10^3/uL (5.00-10.00)
[2023-04-20 14:42] LABS: ALBUMIN 3.87 g/dL (3.40-5.00); BILIRUBIN TOTAL 0.6 mg/dL (0.2-1.0); CALCIUM 9.3 mg/dL (8.7-10.3); CARBON DIOXIDE,CO2 29.2 mmol/L (21.0-32.0); CREATININE 0.75 mg/dL (0.51-1.17); EST CRCL DRUG DOSING (CG) 51.26 mL/min; POTASSIUM,K 4.2 mmol/L (3.5-5.1); PROTEIN TOTAL,TP 8.1 g/dL (6.4-8.2)
[2023-04-20 14:51] VITALS: BP 157/80
== END 2023-04-20 14:55 | disposition home or self-care (01) ==
LOC: KA.ED 14:01
DX: L03.113 Cellulitis of right upper limb (principal); S61.451A Open bite of right hand, initial encounter; Z23 Encounter for immunization; J44.9 Chronic obstructive pulmonary disease, unspecified; E11.9 Type 2 diabetes mellitus without complications; E78.00 Pure hypercholesterolemia, unspecified; Z88.0 Allergy status to penicillin; Z88.2 Allergy status to sulfonamides; Z88.8 Allergy status to other drugs, medicaments and biological substances; Z79.82 Long term (current) use of aspirin; Z79.84 Long term (current) use of oral hypoglycemic drugs; Z79.899 Other long term (current) drug therapy; Z90.49 Acquired absence of other specified parts of digestive tract; Z90.710 Acquired absence of both cervix and uterus; W54.0XXA Bitten by dog, initial encounter
CPT/HCPCS: 36415; 80053; 83605; 85025; 90471; 90715; 99283; 99283-25

== ENCOUNTER 2024-06-11 23:20 | Emergency (ER) | payer MEDICARE, MEDICAID ==
[2024-06-12 00:07] LABS: BASOPHILS ABSOLUTE AUTO 0.01 10^3/uL (0.00-0.10); BASOPHILS PERCENT AUTO 0.1 % (0.0-1.0); EOSINOPHILS ABSOLUTE AUTO 0.13 10^3/uL (0.10-0.30); EOSINOPHILS PERCENT AUTO 1.7 % (1.0-3.0); HEMATOCRIT 35.5 % (37.0-47.0); HEMOGLOBIN 12.1 g/dL (12.0-16.0); IMMATURE GRAN ABSOLUTE AUTO 0.01 10^3/uL (0.00-0.04); IMMATURE GRAN PERCENT AUTO 0.1 % (0.0-0.4); LYMPHOCYTES ABSOLUTE AUTO 1.42 10^3/uL (1.00-4.00); LYMPHOCYTES PERCENT AUTO 19.1 % (20.0-40.0); MEAN CORPUSCULAR HEMOGLOBIN 30.5 pg (27.0-31.0); MEAN CORPUSCULAR HGB CONC 34.1 g/dL (32.0-36.0); MEAN CORPUSCULAR VOLUME 89.4 fL (82.0-92.0); MEAN PLATELET VOLUME 9.3 fL (7.4-10.4); MONOCYTES ABSOLUTE AUTO 0.91 10^3/uL (0.10-0.80); MONOCYTES PERCENT AUTO 12.2 % (2.0-8.0); NEUTROPHILS ABSOLUTE AUTO 4.96 10^3/uL (2.50-7.00); NEUTROPHILS PERCENT AUTO 66.8 % (50.0-70.0); PLATELET COUNT,PLT 172 10^3/uL (150-400); RED BLOOD CELL COUNT 3.97 10^6/uL (3.80-5.50); WHITE BLOOD CELL COUNT,WBC 7.44 10^3/uL (5.00-10.00)
[2024-06-12 00:22] LABS: ALBUMIN 3.34 g/dL (3.40-5.00); ANION GAP 16.1 mmol/L (5-15); BILIRUBIN TOTAL 0.6 mg/dL (0.2-1.0); CALCIUM 9.2 mg/dL (8.7-10.3); CARBON DIOXIDE,CO2 26.5 mmol/L (21.0-32.0); CREATININE 0.69 mg/dL (0.51-1.17); EST CRCL DRUG DOSING (CG) 52.34 mL/min; POTASSIUM,K 3.6 mmol/L (3.5-5.1); PROTEIN TOTAL,TP 7.9 g/dL (6.4-8.2)
[2024-06-12] MEDS: guaiFENesin/Dextromethorphan 100-10 MG/5 ML Soln 5 ML Cup PO ONE ×2 (00:22→00:54)
[2024-06-12 06:08] VITALS: BP 157/63; PULSE 97
== END 2024-06-12 01:05 | disposition home or self-care (01) ==
LOC: KA.ED 23:20
DX: J06.9 Acute upper respiratory infection, unspecified (principal); B97.89 Other viral agents as the cause of diseases classified elsewhere; E78.00 Pure hypercholesterolemia, unspecified; J44.9 Chronic obstructive pulmonary disease, unspecified; K21.9 Gastro-esophageal reflux disease without esophagitis; Z90.49 Acquired absence of other specified parts of digestive tract; Z90.710 Acquired absence of both cervix and uterus; Z79.899 Other long term (current) drug therapy; Z79.84 Long term (current) use of oral hypoglycemic drugs; Z79.82 Long term (current) use of aspirin; Z88.2 Allergy status to sulfonamides; Z88.0 Allergy status to penicillin; Z88.8 Allergy status to other drugs, medicaments and biological substances; Z88.6 Allergy status to analgesic agent; Z88.1 Allergy status to other antibiotic agents
CPT/HCPCS: 36415; 71045; 80053; 85025; 87428-QW; 99283; 99284